=== PATIENT | male | born 1960 | race Caucasian/White ===

== ENCOUNTER 2019-04-05 00:48 | Emergency (ER) | payer SELFPAY ==
[~2019-04-05] VITALS: Ht 177.8 cm; Wt 70.0 kg
[2019-04-05 00:55] VITALS: BP 149/97
[2019-04-05] MEDS ORDERED: ELAVIL PO (01:05)
--- NOTE | 2019-04-05 01:06 | NUR ---
PT PLEASANT AND COOPERATIVE, STATES NO INTENTION TO HARM SELF, HAS DEALT WITH DEPRESSION FOR MANY YEARS AND TAKES ELAVIL AND IS FOLLOWED BY A DOCTOR AND NOTES THAT HE HAS RECENTLY REFILLED HIS RX AND IS COMPLIANT WITH HIS MEDICATIONS. STATES THAT HE HAS NEVER TRIED SELF HARM AND HAS NO INTENTION TOO.
--- NOTE | 2019-04-05 01:34 | NUR ---
PT VERBALLY CONTRACTS TO SAFETY, CONTINUES TO DENY SI. PT [facility] [place] AND HAS NO WAY HOME, GIVEN CAB VOUCHER TO [employer] STATES THIS IS 30$, PT STATES THAT HE CAN AFFORD THE REST.
== END 2019-04-05 01:51 | disposition home or self-care (01) ==
LOC: ED 01:45
DX: F32.9 Major depressive disorder, single episode, unspecified (principal)
CPT/HCPCS: 99283